=== PATIENT | female | born 1970 | race Caucasian/White ===

== ENCOUNTER 2023-06-10 17:39 | Outpatient (CLI) | payer BC, SELFPAY | END 2023-06-10 17:40 | disposition home or self-care (01) | PROVIDERS: Visit Provider Emergency Medicine Emergency Medical Services | DX: S69.92XA Unspecified injury of left wrist, hand and finger(s), initial encounter (principal); S89.92XA Unspecified injury of left lower leg, initial encounter; W55.12XA Struck by horse, initial encounter; Y92.79 Other farm location as the place of occurrence of the external cause | CPT/HCPCS: A0425; A0433 ==